=== PATIENT | female | born 1980 | race Caucasian/White ===

== ENCOUNTER 2021-11-04 14:49 | Outpatient (CLI) | payer OTHER, SELFPAY ==
[2021-11-04 16:27] LABS: Albumin* 4.5 g/dL (3.3-5.0); Chloride* 102 mmol/L (96-114); Sodium* 136 mmol/L (135-149)
[2021-11-04 16:28] LABS: Potassium* 3.9 mmol/L (3.6-5.1)
[2021-11-04 16:30] LABS: Alkaline Phosphatase* 77 U/L (40-150); Aspartate Amino Transferase* 23 U/L (12-35); Bilirubin Total* 1.1 mg/dL (0.1-1.5); Blood Urea Nitrogen* 12 mg/dL (5-24); Carbon Dioxide* 25 mmol/L (20-32); Creatinine* 0.6 mg/dL (0.5-1.5); Estimated Glomerular Filt Rate 117 ml/min; Total Protein* 7.3 g/dL (6.0-8.3)
[2021-11-04 16:31] LABS: Alanine Aminotransferase* 16 U/L (4-35); Calcium* 8.8 mg/dL (8.4-10.6); Glucose* 85 mg/dL (60-115)
[2021-11-04 16:33] LABS: C Reactive Protein* 1.7 mg/dL (0.5-1.0)
[2021-11-04 16:44] LABS: Vitamin D 25 Hydroxy* 33 ng/mL (30-80)
[2021-11-04 17:17] LABS: Vitamin B12* 315 pg/mL (243-894)
[2021-11-06 22:58] LABS: Immunoglobulin A 109 mg/dL (68-408)
[2021-11-07 09:44] LABS: Tissue Transglutaminase IgA < 2 U/mL (0-3)
== END 2021-11-04 14:50 | disposition home or self-care (01) ==
PROVIDERS: PCP Family Medicine; Visit Provider Family Medicine
DX: Z01.419 Encounter for gynecological examination (general) (routine) without abnormal findings (principal); R53.83 Other fatigue; G89.29 Other chronic pain; R10.9 Unspecified abdominal pain; F41.9 Anxiety disorder, unspecified; Z86.2 Personal history of diseases of the blood and blood-forming organs and certain disorders involving the immune mechanism; F32.A Depression, unspecified; Z13.21 Encounter for screening for nutritional disorder; Z13.29 Encounter for screening for other suspected endocrine disorder
CPT/HCPCS: 80053; 82306; 82607; 82728; 82784; 83516; 84443; 86140

== ENCOUNTER 2021-12-13 07:34 | Outpatient (CLI) | payer OTHER, SELFPAY ==
[2021-12-16 13:53] LABS: Calprotectin, Fecal 9 ug/g (<=49)
== END 2021-12-13 07:35 | disposition home or self-care (01) ==
LOC: NFLDREF 10:19
PROVIDERS: PCP Family Medicine; Visit Provider Family Medicine
DX: R10.9 Unspecified abdominal pain (principal); G89.29 Other chronic pain; F42.2 Mixed obsessional thoughts and acts; F60.5 Obsessive-compulsive personality disorder; F41.9 Anxiety disorder, unspecified; F32.A Depression, unspecified; K59.00 Constipation, unspecified
CPT/HCPCS: 83993

== ENCOUNTER 2023-03-23 09:24 | Outpatient (CLI) | payer OTHER, SELFPAY ==
--- OUTSIDE RECORDS SUMMARY | 2023-03-23 09:31 | XMS_ITS | Clinical Summary ---
Author Name Unknown Organization [facility] Address [address] [place] [address] Care Team Providers Care Central Supply Assistant Name Role Phone Te Griggs PA-C Primary Care Provider [phone] Source Comments You are receiving this document as you are listed as the primary care provider,follow-up provider, or the patient has been referred to you for consultation.This is in compliance with the Medicare and[facility] EHR Incentive Program,which states Providers who transition their patient to another setting of careor provider of care or refers their patient to another provider of care shouldprovide summary care record for each transition of care or referral. [facility]erg[facility] Active Allergy Reactions Criticality Noted Date Comments Amoxicillin-Pot Clavulanate Hives 08/21/19 16 Sulfa Antibiotics Rash 08/21/2015 Medications Medication Sig Dispensed Refills Start Date End Date Status Vit-Fe Fumarate-FA ( VITAMIN OR) Take 1 tablet by mouth daily (every 24 hours). 30 each 11 11/04/2015 Active Additional Information Patient not taking.Reported on 02/19/2016 doxylamine succinate (UNISOM) 25 MG tablet Take 25 mg by mouth at bedtime as needed. Reported on 03/18/2016 0 Active Pediatric Ycpjdqwg-Yculuhgi-K (FLINTSTONES COMPLETE OR) 0 Active Active Problems Patient Care Coordination No te Formatting of this note is d ifferent from the original. 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 Patient had PDA with repair.?? T21 1/10,000 T18 afp 1:6350 Problem Noted Date Diagnosed Date Encounter for supervision of normal first in first trimester 12/21/2015 Family history of genetic disorder 12/21/2015 Heart defect, congenital 12/21/2015 Resolved Problems Problem Noted Date Diagnosed Date Resolved Date Other acne 10/23/2003 03/07/2005 Overview: LW Onset: 2001 ; Acne Vulgaris Immunizations Name Administration Dates Next Due DTP 10/06/1988, 5,07/07/1983, 984,02/14/1983 HepB Adult (Engerix-B, 20+ y rs, 3 dose series) 04/29/1996,11/16/1995,08/21/1995 Influenza IIV4 (Quadrivalent ) 0.5mL (28394) 12/21/2015 MMR 08/21/1995,01/04/1984 MPSV4 (Menomune) 08/20/2001 OPV, Trivalent (Orimune or tOPV) 989,07/03/1984,04/28/1983, 983 Td 11/16/1995 Family History Medical History Relation Name Comments Genetic Disorder Father translocati on chromosome defect Cancer, Breast Mother Miscarriages / Stillbirths Mother Spont Abortions Mother Thyroid Disorder Mother sjogren's [Other] Mother Alzheimer's Maternal Grandfather Cancer, Breast Maternal Grandmother diagn osed after menopause Heart Disease Maternal Grandmother Cancer Paternal Grandfather Heart Disease Paternal Grandmother Hypertension Paternal Grandmother Relation Name Status Comments Father Alive Mother Alive Brother Alive Maternal Grandfather Maternal Grandmother Paternal Grandfather Paternal Grandmother Social History Tobacco Use Types Packs/Day Years Used Date Smoking Tobacco: Never Smokeless Tobacco: Never Alcohol Use Standard Drinks/Week Comments No 0 (1 standard drink = 0.6 oz pur e alcohol) Sex and Gender Information Value Date Recorded Sex Assigned at Not on file Gender Identity Not on file Sexual Orientation Not on file Last Filed Vital Signs Vital Sign Reading Time Taken Comments Blood Pressure 110/62 03/18/2016 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 Pulse 75 03/18/2016 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 Temperature - - Respiratory Rate - - Oxygen Saturation - - Inhaled Oxygen Concentration - - Weight 56.4 kg (124 lb 6.4 oz) 03/18/2016 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 Height 160 cm (5' 3) 12/21/2015 10:36 AM CDT Body Mass Index 22.04 12/21/2015 10:36 AM CDT Plan of Treatment Health Maintenance Due Date Last Done Comments Hep C Screening (Preventive Services) 1982 COVID-19 Vaccine (#1) 04/03/1983 DTaP/Tdap/Td (6 - Tdap) 11/17/1995 11/15/18 96, 10/06/1988, 10/23/1984, Additional history exists Adult Preventive Visit 2000 Cervical Cancer Screening 12/20/2018 12/21/2015 Influenza (#1) 2022 12/21/2015 Zoster/Shingles (1 of 2) 2032 IPV (Polio) Completed 10/06/1988, 06/12, 04/28/1983, Additional history exists HepB Completed 04/29/1996, 07/1995, 08/21/1995 MCV4 Aged Out 08/20/2001 No longer eligi ble based on patient's age to complete this topic HIV Screening (Preventive Services) Completed 12/21/2015 HPV Vaccine Aged Out No longer eligi ble based on patient's age to complete this topic HepA Aged Out No longer eligi ble based on patient's age to complete this topic Hib Aged Out No longer eligi ble based on patient's age to complete this topic Pneumococcal Aged Out No longer eligi ble based on patient's age to complete this topic Care Teams Central Supply Assistant Relationship Specialty Start Date End Date Te Griggs PA-C [facility] [place] [address] [place] [id number] PCP - General 06/14/10
== END 2023-03-23 09:25 | disposition home or self-care (01) ==
PROVIDERS: PCP Family Medicine; Visit Provider Family Medicine
DX: R53.83 Other fatigue (principal); F41.9 Anxiety disorder, unspecified; R00.2 Palpitations; Z13.6 Encounter for screening for cardiovascular disorders
CPT/HCPCS: 80053; 80061; 82607; 84443

== ENCOUNTER 2024-08-12 09:24 | Outpatient (CLI) | payer OTHER, SELFPAY | END 2024-08-12 09:25 | disposition home or self-care (01) | LOC: NFLDREF 19:45 | PROVIDERS: PCP Family Medicine; Referring Provider Family Medicine; Visit Provider Family Medicine | DX: E78.5 Hyperlipidemia, unspecified (principal); E16.2 Hypoglycemia, unspecified | CPT/HCPCS: 80061; 82947 ==

== ENCOUNTER 2024-08-14 10:29 | Outpatient (CLI) | payer OTHER, SELFPAY ==
[2024-08-16 09:42] LABS: HPV Source Cervical/Vag; HPV, High Risk by TMA Not Detected
== END 2024-08-14 10:30 | disposition home or self-care (01) ==
PROVIDERS: PCP Family Medicine; Visit Provider Family Medicine
DX: Z12.4 Encounter for screening for malignant neoplasm of cervix (principal); Z11.51 Encounter for screening for human papillomavirus (HPV)
CPT/HCPCS: 87624; 87625; 88141; 88142

== ENCOUNTER 2024-11-29 10:06 | Outpatient (CLI) | payer OTHER, SELFPAY ==
--- NOTE | 2024-11-29 10:15 | CRLHL7_ITS ---
For Patients: As a result of the Century Cures Act, medical imaging exams and procedure reports are released immediately into your electronic medical record. You may view this report before your referring provider. If you have questions, please contact your health care provider. INDICATION: BILATERAL SCREENING MAMMOGRAM, ASYMPTOMATIC 44 Y/O FEMALE COMPARISON: BASELINE TECHNIQUE: Digital mammogram in CC and MLO projections including computer-aided detection (CAD) and tomosynthesis. BREAST COMPOSITION: The breasts are heterogeneously dense, which may obscure small masses. FINDINGS: No suspicious findings. ASSESSMENT: BI-RADS 2 Benign RECOMMENDATION: Annual screening mammogram. A lay language report of this examination will be provided to the patient. Dictated by: Nacho Mcintosh MD @ 11/29/2024 11:37:59 (Electronically Signed)
== END 2024-11-29 10:07 | disposition home or self-care (01) ==
LOC: MAMMO 10:08
PROVIDERS: PCP Family Medicine; Visit Provider Family Medicine
DX: Z12.31 Encounter for screening mammogram for malignant neoplasm of breast (principal); R92.333 Mammographic heterogeneous density, bilateral breasts
CPT/HCPCS: 77063; 77067

== ENCOUNTER 2025-01-09 12:25 | Outpatient (CLI) | payer OTHER, SELFPAY | END 2025-01-09 12:26 | disposition home or self-care (01) | PROVIDERS: PCP Family Medicine; Visit Provider Obstetrics & Gynecology | DX: F52.0 Hypoactive sexual desire disorder (principal) | CPT/HCPCS: 84270; 84402; 84403; 84443 ==